=== PATIENT | male | born 1990 | race Caucasian/White ===

== ENCOUNTER 2021-07-25 17:31 | Inpatient (IN) | payer OTHER ==
[~2021-07-25] VITALS: Ht 185.4 cm; Wt 79.8 kg
[2021-07-25 19:00] LABS: RED BLOOD COUNT 4.73 M/UL (4.20-5.50); WHITE BLOOD COUNT 23.9 K/UL (4.5-11.0)
[2021-07-25 19:57] LABS: BUN/CREATININE RATIO 11 (0-10)
[2021-07-26 06:18] LABS: HEMOGLOBIN 8.4 gm/dl (14.0-17.5)
[2021-07-26 06:19] LABS: ADENOVIRUS F 40/41 Not Detected (Negative); ASTROVIRUS Not Detected (Negative); CAMPYLOBACTER Not Detected (Negative); CRYPTOSPORIDIUM Not Detected (Negative); E.COLI 0157 Not Detected (Negative); ENTAMOEBA HISTOLYTICA Not Detected (Negative); ENTEROAGGREGATIVE E.COLI (EAEC Not Detected (Negative); ENTEROPATHOGENIC E.COLI (EPEC) Not Detected (Negative); ENTEROTOXIGENIC E.COLI (ETEC) Not Detected (Negative); GIARDIA LAMBLIA Not Detected (Negative); NOROVIRUS GI/GII Not Detected (Negative); PLESIOMONAS SHIGELLOIDES Not Detected (Negative); ROTOVIRUS A Not Detected (Negative); SALMONELLA Not Detected (Negative); SAPOVIRUS Not Detected (Negative); SHIG/ENTEROINVAS.ECOLI (EIEC) Not Detected (Negative); SHIGA-LIK TOX.PRO.E.COLI (STEC Not Detected (Negative); VIBRIO Not Detected (Negative); VIBRIO CHOLERAE Not Detected (Negative); YERSINIA ENTEROCOLITICA Not Detected (Negative)
[2021-07-26 06:21] LABS: RED BLOOD COUNT 4.02 M/UL (4.20-5.50); WHITE BLOOD COUNT 17.7 K/UL (4.5-11.0)
[2021-07-26 07:52] LABS: CLOSTRIDIUM DIFFICILE TOX A/B Not Detected (Negative)
[2021-07-26] MEDS ORDERED: BUSPAR 10MG10 MG PO (11:06)
[2021-07-26] MEDS ORDERED: ESCITALOPRAM OX20 MG PO (11:07)
[2021-07-27 04:26] LABS: HEMOGLOBIN 7.6 gm/dl (14.0-17.5); RED BLOOD COUNT 3.68 M/UL (4.20-5.50); WHITE BLOOD COUNT 18.1 K/UL (4.5-11.0)
[2021-07-27 05:19] LABS: BUN/CREATININE RATIO 13 (0-10)
[2021-07-27 12:14] LABS: HEMOGLOBIN 7.4 gm/dl (14.0-17.5)
[2021-07-28 02:25] LABS: HEMOGLOBIN 7.7 gm/dl (14.0-17.5); RED BLOOD COUNT 3.67 M/UL (4.20-5.50)
[2021-07-28 02:50] LABS: BUN/CREATININE RATIO 12 (0-10)
[2021-07-29 03:38] LABS: HEMOGLOBIN 8.5 gm/dl (14.0-17.5)
[2021-07-29 03:50] LABS: RED BLOOD COUNT 4.14 M/UL (4.20-5.50); WHITE BLOOD COUNT 18.7 K/UL (4.5-11.0)
[2021-07-29 03:58] LABS: BUN/CREATININE RATIO 14 (0-10)
[2021-07-29 15:37] LABS: HEMOGLOBIN 8.2 gm/dl (14.0-17.5); RED BLOOD COUNT 4.01 M/UL (4.20-5.50); WHITE BLOOD COUNT 14.8 K/UL (4.5-11.0)
[2021-07-30 04:13] LABS: HEMOGLOBIN 8.5 gm/dl (14.0-17.5); RED BLOOD COUNT 4.18 M/UL (4.20-5.50); WHITE BLOOD COUNT 15.3 K/UL (4.5-11.0)
[2021-07-30 04:27] LABS: BUN/CREATININE RATIO 12 (0-10)
[2021-07-31 03:38] LABS: HEMOGLOBIN 7.7 gm/dl (14.0-17.5); WHITE BLOOD COUNT 13.4 K/UL (4.5-11.0)
[2021-07-31 04:02] LABS: RED BLOOD COUNT 3.75 M/UL (4.20-5.50)
[2021-07-31 04:30] LABS: BUN/CREATININE RATIO 10 (0-10)
[2021-08-01 04:05] LABS: HEMOGLOBIN 7.6 gm/dl (14.0-17.5); RED BLOOD COUNT 3.64 M/UL (4.20-5.50); WHITE BLOOD COUNT 11.2 K/UL (4.5-11.0)
[2021-08-01 05:13] LABS: BUN/CREATININE RATIO 10 (0-10)
[2021-08-02 06:34] LABS: HEMOGLOBIN 7.8 gm/dl (14.0-17.5); RED BLOOD COUNT 3.75 M/UL (4.20-5.50); WHITE BLOOD COUNT 9.3 K/UL (4.5-11.0)
[2021-08-02 06:56] LABS: BUN/CREATININE RATIO 10 (0-10)
[2021-08-03 05:58] LABS: HEMOGLOBIN 7.6 gm/dl (14.0-17.5); RED BLOOD COUNT 3.73 M/UL (4.20-5.50); WHITE BLOOD COUNT 7.1 K/UL (4.5-11.0)
[2021-08-03 06:23] LABS: BUN/CREATININE RATIO 9 (0-10)
[2021-08-04 01:31] LABS: HEMOGLOBIN 8.6 gm/dl (14.0-17.5)
[2021-08-04 01:35] LABS: RED BLOOD COUNT 4.21 M/UL (4.20-5.50); WHITE BLOOD COUNT 10.9 K/UL (4.5-11.0)
[2021-08-04 01:56] LABS: BUN/CREATININE RATIO 11 (0-10)
[2021-08-04 08:15] LABS: VITAMIN D, 25-HYDROXY 10.7 ng/mL (30.0-100.0)
[2021-08-04] MEDS ORDERED: VITAMIN D21250 MCG PO (10:34)
[2021-08-04] MEDS ORDERED: VITAMIN B-121000 MC3 PO (10:34)
[2021-08-04] MEDS ORDERED: FLORANEX TABLE1 EACH PO (10:34)
[2021-08-04] MEDS ORDERED: FERROUS GLUCON324 M1 PO (10:34)
[2021-08-07 08:18] LABS: ENDOMYSIAL ANTIBODY IGA Negative (Negative); IMMUNOGLOBULIN A, QN, SERUM 305 mg/dL (90-386); T-TRANSGLUTAMINASE (TTG) IGA <2 U/mL (0-3); T-TRANSGLUTAMINASE (TTG) IGG <2 U/mL (0-5)
== END 2021-08-04 11:43 | disposition home or self-care (01) | DRG 871 ==
LOC: ER1 17:31 → CDU 23:04 → MED SURG 4 07-26 08:07
PROVIDERS: Internal Medicine; Registered Nurse; ADMIT Internal Medicine
DX: A41.51 Sepsis due to Escherichia coli [E. coli] (principal); E43 Unspecified severe protein-calorie malnutrition; N17.9 Acute kidney failure, unspecified; A09 Infectious gastroenteritis and colitis, unspecified; N39.0 Urinary tract infection, site not specified; E87.1 Hypo-osmolality and hyponatremia; Z20.822 Contact with and (suspected) exposure to COVID-19; R65.20 Severe sepsis without septic shock; E87.6 Hypokalemia; D50.9 Iron deficiency anemia, unspecified; D75.838 Other thrombocytosis; R53.81 Other malaise; K80.80 Other cholelithiasis without obstruction; F41.9 Anxiety disorder, unspecified; E86.0 Dehydration; F32.A Depression, unspecified; Z82.49 Family history of ischemic heart disease and other diseases of the circulatory system; Z68.23 Body mass index [BMI] 23.0-23.9, adult
CPT/HCPCS: 36415; 80048; 80053; 81001; 82272; 82550; 82553; 82607; 82728; 82746; 82784; 83010; 83036; 83540; 83550; 83605; 83615; 83690; 83735; 83921; 84100; 84132; 84439; 84443; 84484; 85014; 85018; 85025; 85027; 85045; 85610; 85730; 86140; 86850; 86900; 86901; 86920; 87040; 87077; 87086; 87186; 87507; 93005; 96372; 96374; 96375; 96376; 99285; C9113; G0378; J1650; J1756; J2185; J2405; J2543; J3475; J7030; J7040; Q9967; U0002

== ENCOUNTER 2021-09-04 13:22 | Inpatient (IN) | payer OTHER ==
[~2021-09-04] VITALS: Ht 185.4 cm; Wt 74.6 kg
[~2021-09-04 13:22] MED LIST: BUSPAR 10MG10 MG PO; ESCITALOPRAM OX20 MG PO; FERROUS GLUCON324 M1 PO; FLORANEX TABLE1 EACH PO; VITAMIN B-121000 MC3 PO; VITAMIN D21250 MCG PO
[2021-09-04 14:31] LABS: HEMOGLOBIN 8.5 gm/dl (14.0-17.5); RED BLOOD COUNT 4.09 M/UL (4.20-5.50); WHITE BLOOD COUNT 12.3 K/UL (4.5-11.0)
[2021-09-04 15:05] LABS: BUN/CREATININE RATIO 11 (0-10)
[2021-09-04] MEDS ORDERED: B-121000 MCG PO (17:16)
[2021-09-04] MEDS ORDERED: VITAMIN D21250 MCG PO (17:17)
[2021-09-04] MEDS ORDERED: FERROUS GLUCON324 M1 PO (17:17)
[2021-09-05 10:05] LABS: RED BLOOD COUNT 3.83 M/UL (4.20-5.50); WHITE BLOOD COUNT 11.6 K/UL (4.5-11.0)
[2021-09-05 10:43] LABS: BUN/CREATININE RATIO 11 (0-10)
[2021-09-08 06:34] LABS: HEMOGLOBIN 8.3 gm/dl (14.0-17.5); RED BLOOD COUNT 3.98 M/UL (4.20-5.50); WHITE BLOOD COUNT 4.5 K/UL (4.5-11.0)
[2021-09-08 07:04] LABS: BUN/CREATININE RATIO 8 (0-10)
== END 2021-09-10 11:40 | disposition home or self-care (01) | DRG 372 ==
LOC: ER1 13:22 → MED SURG 4 16:57 → CDU 16:57 → MED SURG 4 20:08
PROVIDERS: Nurse Practitioner; ADMIT Surgery
PROC: 0W9G3ZZ Drainage of Peritoneal Cavity, Percutaneous Approach (ICD-10-PCS; principal; 2021-09-05)
DX: K65.1 Peritoneal abscess (principal); E87.1 Hypo-osmolality and hyponatremia; K56.7 Ileus, unspecified; K80.20 Calculus of gallbladder without cholecystitis without obstruction; D50.9 Iron deficiency anemia, unspecified; Z82.49 Family history of ischemic heart disease and other diseases of the circulatory system; Z79.899 Other long term (current) drug therapy
CPT/HCPCS: 36415; 77012; 80048; 80053; 81001; 82550; 82553; 83605; 83690; 84484; 85025; 85027; 85610; 85730; 87040; 87070; 87075; 87077; 87205; 93005; 96361; 96374; 96375; 99285; C1729; G0378; J1650; J2270; J2405; J2543; J3480; J7030